=== PATIENT | female | born 1965 | race Caucasian/White ===

== ENCOUNTER 2017-02-22 08:54 | Outpatient (CLI) | payer OTHER ==
[2017-02-22 10:12] LABS: Blood Urea Nitrogen 15 mg/dL (7-17)
[2017-02-22] MEDS ORDERED: NACL ONE (10:21)
--- NOTE | 2017-02-22 14:31 | Cat Scan Report ---
FINAL REPORT EXAM: CT ANGIO NECK HISTORY: CAROTIDS STENOSIS/TIA TECHNIQUE: CTA of the neck was performed after the administration of intravenous contrast. Coronal and sagittal reconstructions were included. Rotating MIPS were included rotating 3D reconstructions were also included. PRIORS: None. FINDINGS: Right: There is 50 percent stenosis of the proximal aspect of the right internal carotid artery due to calcified and noncalcified atherosclerotic plaque. The stenosis extends over a length of approximately 1.5 centimeters. No aneurysm. No evidence of vessel occlusion. No evidence of dissection. The vertebral artery is patent. The common carotid artery is patent. Normal vessel origins are noted. Left: There is 50 percent stenosis of the proximal aspect of the left internal carotid artery at the level of the bifurcation. There is 70 percent stenosis of the left proximal internal carotid artery, approximately 1.5 centimeters from the carotid bifurcation. This focal stenosis extends over a length of 5 millimeters. The common carotid artery is widely patent. The vertebral artery is patent. The left vertebral artery appears to arise directly from the aortic arch. No aneurysm or dissection. No evidence of vessel occlusion. Post thyroidectomy. Multilevel degenerative changes of the cervical spine are seen. Reversal of the cervical lordosis is likely related to patient positioning or muscle spasm. Note that the degrees of stenoses were measured taking the diameter of the area of stenosis to the normal vessel just distal to the area of stenosis. IMPRESSION: 1. 50 percent stenosis of the proximal right internal carotid artery. 2. Area of 70 percent stenosis in the proximal left internal carotid artery, 1.5 centimeters distal to the carotid bifurcation. Second focus of 50 percent stenosis within the proximal left internal carotid artery at the level of the bifurcation.
--- NOTE | 2017-02-23 15:27 | Vascular Lab Report ---
RENAL ARTERY DUPLEX EXAM: REASON FOR EXAM: Renal artery stenosis. NOTE: Visualization is technically adequate. COMMENTS ON THE AORTA: The aorta is patent. Normal flow velocities are observed. A aneurysmal dilatation is noted. Mild atherosclerotic change is identified. The celiac artery is patent with normal flow velocity. The superior mesenteric artery is patent with normal flow velocity. COMMENTS ON THE RIGHT KIDNEY: The kidney measures 9.4 centimeters in greatest dimension. No obvious parenchymal abnormalities are noted. The renal artery is patent. Maximum systolic velocity is 204 cm/sec. This finding is consistent with less than 60% diameter reduction. Renal aortic index is 2.27. This finding is consistent with less than 60% diameter reduction. Overall findings are consistent with less than 60% diameter reduction in the renal artery. COMMENTS ON THE LEFT KIDNEY: The kidney measures 10.9 centimeters in greatest dimension. No obvious parenchymal abnormalities are noted. The renal artery is patent. Maximum systolic velocity is 219 cm/sec. This finding is consistent with less than 60% diameter reduction. Renal aortic index is 2.43. This finding is consistent with less than 60% diameter reduction. Overall findings are consistent with less than 60% diameter reduction in the renal artery. IMPRESSION: RIGHT KIDNEY: Less than 60% diameter reduction in the renal artery. LEFT KIDNEY: Less than 60% diameter reduction in the renal artery. Mild velocity elevations are noted in both renal arteries. Clinical significance is unknown.
== END 2017-02-22 08:55 | disposition home or self-care (01) ==
LOC: US 08:54
PROVIDERS: ATTEND Surgery Vascular Surgery
DX: I65.23 Occlusion and stenosis of bilateral carotid arteries (principal); I70.1 Atherosclerosis of renal artery; E11.9 Type 2 diabetes mellitus without complications; I10 Essential (primary) hypertension; M47.892 Other spondylosis, cervical region; F17.200 Nicotine dependence, unspecified, uncomplicated; Z90.89 Acquired absence of other organs
CPT/HCPCS: 36415; 70498; 82565; 84520; 93975; Q9967

== ENCOUNTER 2017-03-10 06:13 | Inpatient (IN) | payer OTHER ==
[2017-03-08 12:07] LABS: Basophils # (Auto) 0.1 K/mm3 (0.0-0.1); Basophils % (Auto) 0.5 % (0.0-1.8); Eosinophils # (Auto) 0.2 K/mm3 (0.0-0.4); Eosinophils % (Auto) 1.8 % (0.0-4.3); Hematocrit 37.7 % (30.3-42.9); Hemoglobin 11.7 gm/dl (10.1-14.3); Lymphocytes # (Auto) 2.8 K/mm3 (1.2-5.4); Lymphocytes % (Auto) 22.5 % (13.4-35.0); Mean Corpuscular HGB Conc 31 % (30-34); Mean Corpuscular Volume 76 fl (79-97); Monocytes # (Auto) 0.6 K/mm3 (0.0-0.8); Monocytes % (Auto) 4.7 % (0.0-7.3); Platelet Count 263 K/mm3 (140-440); Red Blood Count 4.94 M/mm3 (3.65-5.03); Red Cell Distribution Width 18.7 % (13.2-15.2)
[2017-03-08 12:08] LABS: Mean Corpuscular Hemoglobin 24 pg (28-32)
--- NOTE | 2017-03-08 12:11 | Anesthesia Consultation ---
Anesthesia Consult and Med Hx Date of service: 03/08/17 - Airway Anesthetic Teeth Evaluation: Good ROM Head & Neck: Adequate Mental/Hyoid Distance: Adequate Mallampati Class: Class III Intubation Access Assessment: Possibly Difficult - Pulmonary Exam CTA: Yes - Cardiac Exam Cardiac Exam: RRR - Pre-Operative Health Status ASA Pre-Surgery Classification: ASA3 Proposed Anesthetic Plan: General - Pulmonary Hx Smoking: Yes (1/2 ppd x 30 yrs, current) Hx Asthma: Yes COPD: No Home Oxygen Therapy: No Hx Sleep Apnea: Yes (+CPAP) - Cardiovascular System Hx Hypertension: Yes Hx Cardia Arrhythmia: Yes (OCCASSIONAL PALPITATIONS) - Central Nervous System Hx Seizures: No CVA: No Hx Back Pain: Yes Hx Psychiatric Problems: No - Endocrine Hx Renal Disease: No Hx Non-Insulin Dependent Diabetes: Yes Hx Thyroid Disease: Yes Hx Hypothyroidism: Yes (THYROIDECTOMY, ON MEDS) - Hematic Hx Anemia: Yes - Other Systems Hx Cancer: No Hx Obesity: Yes (MORBID, BMI 42.1) - Additional Comments Anesthesia Medical History Comments: ARTERIAL LINE DISCUSSED. PATIENT IS SLOW TO WAKE UP AND REPORTS THAT A SMALL ETT IS NEEDED BECAUSE SHE HAS A "SMALL THROAT".
[2017-03-08 12:29] LABS: BUN/Creatinine Ratio 23; Blood Urea Nitrogen 14 mg/dL (7-17); Hemolysis Index 0
[~2017-03-10 06:13] MED LIST: ANCEF/STERILE WATER 2 GM/20 ML 2 GM/20 ML SYRINGE IV NR; PEPCID IV NR; VERSED IV NR
[2017-03-10] MEDS ORDERED: NACL BACTERIOSTATIC INFILTRATI ONE (06:33)
[2017-03-10] MEDS: NACL 0.9% 1000 ML 1,000 ML IV SCH (07:09)
[2017-03-10] MEDS ORDERED: XYLOCAINE MPF 2% ONE (07:12)
[2017-03-10] MEDS ORDERED: HEPARIN 10,000 UNITS/10 ML ONE ×2 (07:17→10:07)
[2017-03-10] MEDS ORDERED: MARCAINE 0.5% 30 ML INFILTRATI ONE (07:17)
[2017-03-10] MEDS ORDERED: PAPAVERINE ONE (07:17)
[2017-03-10] MEDS ORDERED: PROTAMINE SULFATE ONE (07:17)
[2017-03-10] MEDS ORDERED: XYLOCAINE 1% 20 mL ONE (07:17)
[2017-03-10] MEDS ORDERED: NACL 0.9% 500 ML 500 ML ONE (07:18)
[2017-03-10] MEDS ORDERED: DIPRIVAN 10 MG/ML IV ONE (07:28)
[2017-03-10] MEDS ORDERED: ZOFRAN ONE (07:28)
[2017-03-10] MEDS ORDERED: ZEMURON IV ONE (07:28)
[2017-03-10] MEDS ORDERED: PROVENTIL IH NR (08:00)
[2017-03-10] MEDS ORDERED: HEPARIN 10,000 UNITS/10 ML IR ONE (08:43)
[2017-03-10] MEDS ORDERED: XYLOCAINE MPF 1% INFILTRATI ONE (08:43)
[2017-03-10] MEDS ORDERED: MARCAINE 0.5% INFILTRATI ONE (08:43)
[2017-03-10] MEDS ORDERED: NACL 0.9% 500 ML IV ONE (08:43)
[2017-03-10] MEDS ORDERED: DILAUDID ONE (08:47)
[2017-03-10] MEDS ORDERED: NACL 0.9% 1000 ML 1,000 ML ONE (09:17)
[2017-03-10] MEDS ORDERED: DECADRON ONE (09:23)
--- NOTE | 2017-03-10 09:41 | Anesthesia Day of Surgery ---
Anesthesia Day of Surgery - Day of Surgery Patient Examined: Yes Patient H&P Reviewed: Yes Patient is NPO: Yes
--- NOTE | 2017-03-10 09:42 | Progress Note ---
Subjective Date of service: 03/10/17 (pt seen and examined 03/10/17 pt has receeding chin and small mouth-known hx difficult intubation-glidescope available will give preop albuterol) Objective - Constitutional Vitals: Vital Signs - 12hr 03/10/17 03/10/17 07:16 07:19 Temperature 98.1 F 98.1 F Pulse Rate 80 80 Respiratory 20 20 Rate Blood Pressure 100/52 100/52 O2 Sat by Pulse 98 98 Oximetry - Labs CBC & Chem 7: 03/08/17 11:35 03/08/17 11:35 Labs: Abnormal lab results 03/10/17 Range/Units 06:51 POC Glucose 158 H (70-105)
[2017-03-10] MEDS ORDERED: NEO SYNEPHRINE/NS Syringe(OR USE) IV ONE (09:43)
[2017-03-10] MEDS ORDERED: ePHEDrine SULFATE ONE (09:48)
[2017-03-10] MEDS ORDERED: NACL 0.9% 100 ML ONE (10:15)
[2017-03-10] MEDS ORDERED: NEO SYNEPHRINE ONE ×2 (10:15→12:56)
--- NOTE | 2017-03-10 11:40 | Operative Report ---
Operative Report Operative Report: Date of procedure:03/10/2017 Pre-operative diagnosis: Symptomatic right carotid stenosis Post-operative diagnosis: Same Procedure name(s): Right carotid endarterectomy, Dacron patch angioplasty, intraoperative duplex scan Surgeon: Eldon Kingsley MD Core Rescuer: Shayy Dobbs PA-C Anesthesia: General endotracheal EBL: Less than 50 mL Specimen(s): Plaque Complications: None Findings: High-grade greater than 80% ICA stenosis intraoperative duplex scan shows mildly elevated distal velocities associated with distal ICA angulation. Low-grade stenosis above the endarterectomy site identified but not felt to be clinically significant accessible for removal Procedure: [Patient in the supine position after adequate levels of general endotracheal anesthesia was obtained the patient's head was rotated to the left and the right anterior neck was prepped and draped using standard sterile technique. A standard anterior sternocleidomastoid incision was made and carried down through the subcutaneous tissue the dissection was then carried anterior to the sternocleidomastoid through the platysma and a dissection plane was developed until the carotid sheath was encountered. The sheath was then entered and the jugular vein were swept laterally. The facial vein was divided. The vagus nerve was identified and preserved. Sequentially the common carotid external carotid and then the internal carotid arteries were delineated from the surrounding tissue and encircled using vessel loops. The hypoglossal nerve was identified. The patient was then heparinized and after appropriate delay the vessels were occluded. A longitudinal arteriotomy was then made in the distal common and extended through the internal carotid artery plaque. Backbleeding was assessed and was felt to be adequate therefore no shunt was used. A high grade carotid stenosis was encountered with a large macro ulceration. A standard endarterectomy including an external eversion endarterectomy was performed. Loose debris was removed. The arteriotomy was then closed using a dacryon patch,double tapered configuration, four needle technique. Prior to completion of the suture line, antegrade and retrograde flushing was performed. The suture line was then completed and air was evacuated by retrograde ICA filling. The ICA was reoccluded and antegrade flow was initially established into the external carotid artery. It was subsequently released to the ICA. Patient tolerated declamping without difficulty. Hemostasis was obtained using Instat and counterpressure. Intraoperative duplex scan was performed which showed excellent antegrade flow, complete resolution of the high-grade velocities and no loose debris. There was a segment distal to the end of the endarterectomized portion of the ICA had some residual stenosis. It was deemed to be less than 50% by direct visualization. Distal to this area there were some elevated velocities as the internal carotid artery does deeper into the neck. No significant stenosis was identified at this level. I felt that the residual stenosis was not a significant risk of stroke or TIA and that chasing that would be challenging due to the distance distally and the configuration of her neck therefore I elected to leave that in place. The incision was then blocked using 20 mL of Marcaine the incision was then closed using 3-0 Vicryl subcutaneous and 4-0 Monocryl subcuticular. The skin was then reapproximated using Dermabond] Patient was then returned to the supine position and extubated and returned to the recovery room in a stable condition having tolerated the procedure well. Sponge and needle counts were correct.
[2017-03-10] MEDS ORDERED: BLOXIVERZ ONE (11:45)
[2017-03-10] MEDS ORDERED: ROBINUL ONE (11:45)
[2017-03-10] MEDS ORDERED: PROAIR IH PRN (11:59)
[2017-03-10] MEDS ORDERED: ZOFRAN IV PRN (12:01)
[2017-03-10] MEDS ORDERED: MORPHINE IV PRN ×3 (12:01→13:38)
[2017-03-10] MEDS ORDERED: MORPHINE ONE (12:59)
[2017-03-10] MEDS ORDERED: NIPRIDE 50 MG in D5W 248 ML IV SCH (13:00)
[2017-03-10] MEDS ORDERED: NACL 0.9% 1000 ML 1,000 ML IV SCH (13:00)
[2017-03-10] MEDS ORDERED: INTROPIN DRIP 800 MG/D5W 250 ML 800 MG/250 ML BAG IV SCH (13:00)
[2017-03-10] MEDS ORDERED: ANCEF/NS 1 GM/50 ML 1 GM/50 ML BAG IV SCH (13:00)
[2017-03-10] MEDS: PROVENTIL IH PRN (13:21)
--- NOTE | 2017-03-10 13:30 | Progress Note ---
Subjective Date of service: 03/10/17 (called to [facility] at 12:55 to evaluate pt for CP- dopaimine ordered after neosy 50ug x 2 given for bp/ekg ordered /nitropaste ordered and placed/ekg ordred and dr villavicencio to beside at 13:18-he will f/u with enzymes ) Objective - Constitutional Vitals: Vital Signs - 12hr 03/10/17 03/10/17 03/10/17 07:16 07:19 11:50 Temperature 98.1 F 98.1 F 96.8 F L Pulse Rate 80 80 78 Respiratory 20 20 17 Rate Blood Pressure 100/52 100/52 100/41 O2 Sat by Pulse 98 98 96 Oximetry 03/10/17 03/10/17 03/10/17 11:55 12:00 12:05 Temperature Pulse Rate 81 73 73 Respiratory 19 16 17 Rate Blood Pressure 89/46 96/42 95/41 O2 Sat by Pulse 93 95 97 Oximetry 03/10/17 03/10/17 12:15 12:30 Temperature Pulse Rate 74 72 Respiratory 16 18 Rate Blood Pressure 90/42 93/41 O2 Sat by Pulse 97 95 Oximetry - Labs CBC & Chem 7: 03/08/17 11:35 03/08/17 11:35 Labs: Abnormal lab results 03/10/17 03/10/17 Range/Units 06:51 12:12 POC Glucose 158 H 207 H (70-105)
--- NOTE | 2017-03-10 13:34 | Post Anesthesia Evaluation ---
- Post Anesthesia Evaluation Patient Participated: Yes Airway Patent: Yes Stable Respiratory Function: Yes Nausea/Vomiting: No Temp > 96.8F: Yes Pain Manageable: Yes Adequeate Hydration: Yes Block Receding Appropriately: Not Applicable Patient on Ventilator: No
[2017-03-10] MEDS ORDERED: NITRO-BID 2% TP ONE (14:00)
--- NOTE | 2017-03-10 14:28 | Consultation ---
History of Present Illness Consult date: 03/10/17 Requesting physician: CLEMENTINE AZEVEDO Consult reason: chest pain, post op evaluation History of present illness: Pt is a 51 YO female with a past medical history significant for HTN, DM, obesity, tobacco use, thyroidectomy, bilateral carotid stenosis, asthma. She recently established care in our office with Dr. Momin. She presented to [facility] today for scheduled right CEA for symptomatic right carotid stenosis and successfully underwent right carotid endarterectomy per Dr. Kingsley. Post- operatively, pt developed midsternal nonradiating chest pain and thus cardiology has been consulted. Post-OP ECG shows NAF. Toya pending. Pt also developed hypotension post-operatively and was initiated on dopamine gtt. On evaluation, pt is resting comfortably in bed. She denies any palpitations, n/v, diaphoresis, dizziness or syncope. She reports that her chest pain has nearly resolved. She remains on dopamine gtt. Past History Past Medical History: diabetes, hypertension, other (bilateral carotid stenosis ; asthma; obesity) Past Surgical History: thyroidectomy, hysterectomy, hernia repair Social history: smoking. denies: alcohol abuse, prescription drug abuse Medications and Allergies Allergies Allergy/AdvReac Type Severity Reaction Status Date / Time apple Allergy Itching Unverified 02/22/17 08:57 Fish Containing Products Allergy Swelling Unverified 02/22/17 08:57 Iodinated Contrast- Oral and Allergy Shortness Verified 11/20/12 21:47 IV Dye of Breath [Iodinated Contrast Media - IV Dye] CT DYE Allergy Shortness Uncoded 02/22/17 08:56 of Breath SURGICAL TAPE Allergy Rash Uncoded 02/22/17 08:56 Home Medications Medication Instructions Recorded Confirmed Last Taken Type Metoprolol [Lopressor] 50 mg PO DAILY 11/20/12 03/10/17 03/10/17 04:30 History Albuterol Sulfate [Ventolin Hfa] 2 puff IH PRN PRN 02/24/17 03/10/17 03/09/17 History Aspirin [Durlaza] 162.5 mg PO DAILY 02/24/17 03/10/17 Unknown History Hydralazine HCl [Hydralazine HCl] 50 mg PO DAILY 02/24/17 03/10/17 03/10/17 04: 30 History Levothyroxine Sodium [Synthroid] 350 mg PO DAILY 1203/10/17 03/09/17 History Lisinopril [Zestril TAB] 40 mg PO DAILY 02/24/17 03/10/17 03/10/17 04:30 History Metformin HCl [Metformin HCl] 500 mg PO TID 02/24/17 03/10/17 03/09/17 History Omeprazole [Omeprazole] 40 mg PO DAILY 02/24/17 03/10/17 03/09/17 History Active Meds: Active Medications Acetaminophen/Hydrocodone Bitart ([place] 5/325) 1 each PO Q6H PRN PRN Reason: Pain, Moderate (4-6) Albuterol (Proventil) 2.5 mg IH PREOP NR Stop: 03/10/17 21:00 Last Admin: 03/10/17 08:12 Dose: 2.5 mg Albuterol (Proventil) 2.5 mg IH Q4HRT PRN PRN Reason: Wheezing Last Admin: 03/10/17 13:21 Dose: 2.5 mg Clopidogrel Bisulfate (Plavix) 75 mg PO QDAY EMMANUEL Clopidogrel Bisulfate (Plavix) 150 mg PO NOW EMMANU[facility] Docusate Sodium (Colace) 100 mg PO BID [facility] Famotidine (Pepcid) 20 mg IV PREOP NR Stop: 03/10/17 23:00 Last Admin: 03/10/17 07:06 Dose: 20 mg Hydralazine HCl (Apresoline) 50 mg PO DAILY [facility]MM[facility] Cefazolin Sodium (Ancef/Sterile Water 2 Gm/20 Ml) 2 gm in 20 mls @ 80 mls/hr IV PREOP NR PRN Reason: Protocol Stop: 03/10/17 23:59 Sodium Chloride (Nacl 0.9% 1000 Ml) 1,000 mls @ 42 mls/hr IV DIRECT EMMANUEL Last Admin: 03/10/17 07:09 Dose: 42 mls/hr Dopamine HCl/Dextrose (Intropin Drip 800 Mg/D5w 250 Ml) 800 mg in 250 mls @ 3.912 mls/hr IV TITR EMMANUEL; 2 MCG/KG/MIN PRN Reason: Protocol Last Admin: 03/10/17 13:00 Dose: 2 mcg/kg/min, 3.912 mls/hr Sodium Nitroprusside 50 mg/ (Dextrose) 250 mls @ 7.82 mls/hr IV TITR EMMANUEL; 0.25 MCG/KG/MIN PRN Reason: Protocol Sodium Chloride (Nacl 0.9% 1000 Ml) 1,000 mls @ 100 mls/hr IV DIRECT EMMANUEL Last Admin: 03/10/17 13:25 Dose: 100 mls/hr Cefazolin Sodium 1 gm/ Sodium (Chloride) 20 mls @ 20 mls/10 min IV Q8H EMMANUEL Stop: 03/11/17 00:09 Levothyroxine Sodium (Synthroid) 350,000 mcg PO DAILY [facility] Lisinopril (Zestril) 40 mg PO DAILY [facility] Metformin HCl (Glucophage) 500 mg PO TIDDIAB [facility] Metoprolol Tartrate (Lopressor) 50 mg PO DAILY [facility] Midazolam HCl (Versed) 2 mg IV PREOP NR Stop: 03/10/17 23:59 Last Admin: 03/10/17 07:07 Dose: 2 mg Morphine Sulfate (Morphine) 4 mg IV Q4H PRN PRN Reason: Pain , Severe (7-10) Last Admin: 03/10/17 12:58 Dose: 4 mg Morphine Sulfate (Morphine) 2 mg IV Q4H PRN PRN Reason: Pain, Moderate (4-6) Ondansetron HCl (Zofran) 4 mg IV Q8H PRN PRN Reason: Nausea And Vomiting Pantoprazole Sodium (Protonix) 40 mg PO DAILY [facility] Review of Systems Constitutional: no weight loss, no weight gain, no fever, no chills, no sweats Ears, nose, mouth and throat: no ear pain, no nose pain, no sinus pressure, no sinus pain Cardiovascular: chest pain, no orthopnea, no palpitations, no rapid/irregular heart beat, no edema, no syncope, no lightheadedness, no shortness of breath, no dyspnea on exertion Respiratory: no cough, no shortness of breath, no dyspnea on exertion, no congestion, no wheezing, no pain on inspiration Gastrointestinal: no abdominal pain, no nausea, no vomiting, no diarrhea, no constipation, no change in bowel habits Genitourinary Female: no pelvic pain, no flank pain, no dysuria, no urinary frequency, no urgency Musculoskeletal: neck pain (Right CEA site incisional pain), no neck stiffness, no shooting arm pain, no arm numbness/tingling, no low back pain, no shooting leg pain, no leg numbness/tingling, no redness of joints Integumentary: no rash, no pruritis, no redness, no sores Neurological: no head injury, no paralysis, no weakness, no parathesias, no numbness, no tingling, no seizures, no syncope Psychiatric: no anxiety Endocrine: no cold intolerance, no heat intolerance Hematologic/Lymphatic: no easy bruising, no easy bleeding Allergic/Immunologic: no urticaria Physical Examination Vital Signs Temp Pulse Resp BP 98.2 F 88 18 140/80 03/08/17 11:25 03/08/17 11:25 03/08/17 11:25 03/08/17 11:25 General appearance: no acute distress HEENT: Positive: PERRL, Normocephaly, Mucus Membranes Moist Neck: Positive: neck supple, trachea midline Cardiac: Positive: Reg Rate and Rhythm, S1/S2, Systolic Murmur Lungs: Positive: clear to auscultation Neuro: Positive: Grossly Intact Abdomen: Positive: Soft. Negative: Tender Skin: Negative: Rash, Suspicious Lesions Incision: Incision Site (right CEA site) Musculoskeletal: No Fluid Collection, No Pain, Normal Range of Motion Extremities: Absent: edema Results 03/08/17 11:35 03/08/17 11:35 - Imaging and Cardiology Echo: pending EKG: report reviewed, image reviewed EKG interpretations - Telemetry EKG Rhythm: Sinus Rhythm - EKG Sinus rhythms and dysrhythmias: sinus rhythm Repolarization changes or abnormalities: nonspecific abnormality, ST segment, and/or T wave Assessment and Plan Assessment: Chest pain, atypical Bilateral carotid stenosis s/p right CEA 03/10/17 Post-operative hypotension - requiring dopamine gtt H/o HTN DM Obesity Asthma Tobacco use Plan: Wean dopamine. Once dopamine gtt is weaned, resume home cardiac regimen as tolerated. Obtain echo. Obtain Toya. Repeat EKG in AM. Pt to tx to CCU. Assessment and plan reviewed with pt at bedside. The patient has been seen in conjunction with Dr. Koroma who agrees with the assessment and plan of care.
[2017-03-10] MEDS: PLAVIX PO SCH (15:57)
[2017-03-10] MEDS: ceFAZolin 1 GM in NACL 0.9% 20 ML IV SCH ×2 (15:58→23:57)
[2017-03-10 16:13] LABS: Creatine Kinase MB 1.7 ng/mL (0.0-4.0)
[2017-03-10] MEDS: GLUCOPHAGE PO SCH (18:46)
[2017-03-11] MEDS ORDERED: NON-FORMULARY (Omeprazole [Omeprazole] 40 MG) PO SCH (10:00)
[2017-03-11] MEDS ORDERED: LOPRESSOR PO SCH ×2 (10:00)
[2017-03-11] MEDS ORDERED: SYNTHROID PO SCH (10:00)
[2017-03-11] MEDS: COLACE PO SCH ×2 (10:10→10:11)
[2017-03-11] MEDS: GLUCOPHAGE PO SCH ×2 (10:11→16:27)
[2017-03-11] MEDS: APRESOLINE PO SCH (10:12)
[2017-03-11] MEDS: PLAVIX PO SCH (10:12)
[2017-03-11] MEDS: TOPROL XL PO SCH (10:13)
[2017-03-11] MEDS: ZESTRIL PO SCH (10:14)
[2017-03-11] MEDS: NORCO 5/325 PO PRN ×2 (10:15→20:13)
[2017-03-11] MEDS: SYNTHROID PO SCH ×2 (10:22→10:23)
[2017-03-11] MEDS: PROTONIX PO SCH (10:25)
--- NOTE | 2017-03-11 10:44 | Progress Note ---
Assessment and Plan Assessment: Post-operative chest pain, atypical - currently resolved; Toya negative for AMI; ECG with NAF Bilateral carotid stenosis s/p right CEA 03/10/17 Post-operative hypotension - requiring dopamine gtt H/o HTN DM Obesity Asthma Tobacco use Plan: Wean dopamine. Once dopamine gtt is weaned, resume home cardiac regimen as tolerated. Await echo. Assessment and plan reviewed with pt at bedside. The patient has been seen in conjunction with Dr. Koroma who agrees with the assessment and plan of care. Subjective Date of service: 03/11/17 Principal diagnosis: carotid stenosis; atypical cp Interval history: pt resting comfortably up in chair, no current cardiac complaints. states chest pain has resolved. remains on dopamine gtt. Objective Last Vital Signs Temp 98.6 F 03/11/17 08:15 Pulse 75 03/11/17 10:14 Resp 15 03/11/17 10:15 BP 103/50 03/11/17 10:14 Pulse Ox 91 03/11/17 09:00 - Physical Examination HEENT: Positive: PERRL, Normocephaly, Mucus Membranes Moist Neck: Positive: neck supple, trachea midline Cardiac: Positive: Reg Rate and Rhythm, S1/S2, Systolic Murmur Lungs: Positive: clear to auscultation Neuro: Positive: Grossly Intact Abdomen: Positive: Soft. Negative: Tender Skin: Negative: Rash, Suspicious Lesions Incision: Incision Site (right CEA site) Musculoskeletal: No Fluid Collection, No Pain, Normal Range of Motion Extremities: Absent: edema - Labs and Meds Cardiac Enzymes 03/10/17 Range/Units 15:16 CK-MB (CK-2) 1.7 (0.0-4.0) ng/mL - Imaging and Cardiology EKG: report reviewed, image reviewed Echo: pending - Telemetry EKG Rhythm: Sinus Rhythm - EKG Sinus rhythms and dysrhythmias: sinus rhythm Repolarization changes or abnormalities: nonspecific abnormality, ST segment, and/or T wave
[2017-03-11] MEDS: PROVENTIL IH PRN (10:47)
--- NOTE | 2017-03-11 15:27 | Progress Note ---
Assessment and Plan The patient was weaned off dopamine and has only had 2 episodes of chest pain. This is the same Chest pain that she has had prior to her operation. Cardiology has been following and does not recommend intervention at this time. She has no focal deficits and no evidence of hematoma. She will be transferred to telemetry and watch for 24 hours after discontinuing her dopamine. It patient remains stable she will be discharged to home tomorrow. She's been given discharge instructions. The patient has expressed understanding and agrees with this plan. Subjective Date of service: 03/11/17 Principal diagnosis: carotid stenosis; atypical cp Interval history: The patient states she has had 2 episodes of chest pain within the last 24 hours. This is no different than the chest pain she has had prior to her operation. Cardiology has evaluated her and does not feel that she requires any intervention at this time. She was able to be weaned off dopamine this morning. She is tolerating a diet and ambulating without any difficulty. She has no other complaints at this time. Objective - Constitutional Vitals: Vital Signs - 12hr 03/11/17 03/11/17 03/11/17 04:00 05:00 06:00 Temperature 98.0 F 97.2 F L 98.8 F Pulse Rate 76 84 77 Respiratory 14 14 12 Rate Blood Pressure Blood Pressure 138/52 102/48 105/51 [Right] O2 Sat by Pulse 92 93 93 Oximetry 03/11/17 03/11/17 03/11/17 07:00 08:15 09:00 Temperature 98.6 F 98.6 F Pulse Rate 82 82 74 Respiratory 15 13 16 Rate Blood Pressure Blood Pressure 145/63 94/38 93/46 [Right] O2 Sat by Pulse 92 0 L 91 Oximetry 03/11/17 03/11/17 03/11/17 10:12 10:13 10:14 Temperature Pulse Rate 75 75 75 Respiratory Rate Blood Pressure 103/50 103/50 103/50 Blood Pressure [Right] O2 Sat by Pulse Oximetry 03/11/17 03/11/17 03/11/17 10:15 11:00 15:18 Temperature 98 F Pulse Rate 89 82 Respiratory 15 96 H 18 Rate Blood Pressure Blood Pressure 101/46 97/44 [Right] O2 Sat by Pulse Oximetry General appearance: Present: no acute distress - Neck Neck: other (right neck incision is clean dry and intact without evidence of hematoma) - Respiratory Respiratory effort: normal - Cardiovascular Rhythm: regular Extremities: no ischemia, normal temperature - Gastrointestinal General gastrointestinal: Present: soft, non-distended - Genitourinary Female genitourinary: deferred - Integumentary Integumentary: clear - Neurologic Neurologic: no focal deficits - Psychiatric Psychiatric: appropriate mood/affect, intact judgment & insight - Labs CBC & Chem 7: 03/08/17 11:35 03/08/17 11:35 Labs: Abnormal lab results 03/10/17 03/10/17 03/11/17 Range/Units 17:23 23:19 04:16 POC Glucose 244 H 215 H 168 H (70-105) 03/11/17 Range/Units 12:09 POC Glucose 158 H (70-105)
--- NOTE | 2017-03-11 17:56 | Consultation ---
History of Present Illness Consult date: 03/11/17 Reason for consult: obstructive sleep apnea History of present illness: This 51 year old female Morbidly Obese admitted for vascular procedure. Consulted for pulmonary management and sleep Apnea management.Patient alert, awake. No acute respiratory distress. No complaint of shortness of breath or cough at this time.. Some non specific chest pain at times. If patient having recurrent chest pains, recommend to consult cardiology. Patient has history hypertension ,diabetes, Hypothyroidism and sleep apnea. Patient has history of smoking 1/2 a pack a day x 30 years. Denies alcohol or drug abuse. 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 Patient does not know the CPAP pressure. Past History Past Medical History: diabetes, hypertension, other (bilateral carotid stenosis ; asthma; obesity) Past Surgical History: thyroidectomy, hysterectomy, hernia repair Social history: smoking. denies: alcohol abuse, prescription drug abuse Medications and Allergies Allergies Allergy/AdvReac Type Severity Reaction Status Date / Time apple Allergy Itching Unverified 02/22/17 08:57 Fish Containing Products Allergy Swelling Unverified 02/22/17 08:57 Iodinated Contrast- Oral and Allergy Shortness Verified 11/20/12 21:47 IV Dye of Breath [Iodinated Contrast Media - IV Dye] CT DYE Allergy Shortness Uncoded 02/22/17 08:56 of Breath SURGICAL TAPE Allergy Rash Uncoded 02/22/17 08:56 Home Medications Medication Instructions Recorded Confirmed Last Taken Type Metoprolol [Lopressor] 50 mg PO DAILY 11/20/12 03/10/17 03/10/17 04:30 History Albuterol Sulfate [Ventolin Hfa] 2 puff IH PRN PRN 02/24/17 03/10/17 03/09/17 History Aspirin [Durlaza] 162.5 mg PO DAILY 02/24/17 03/10/17 Unknown History Hydralazine HCl [Hydralazine HCl] 50 mg PO DAILY 02/24/17 03/10/17 03/10/17 04: 30 History Levothyroxine Sodium [Synthroid] 350 mg PO DAILY 02/24/17 03/10/17 03/09/17 History Lisinopril [Zestril TAB] 40 mg PO DAILY 02/24/17 03/10/17 03/10/17 04:30 History Metformin HCl [Metformin HCl] 500 mg PO TID 02/24/17 03/10/17 03/09/17 History Omeprazole [Omeprazole] 40 mg PO DAILY 02/24/17 03/10/17 03/09/17 History Active Meds: Active Medications Acetaminophen/Hydrocodone Bitart (Vista 5/325) 1 each PO Q6H PRN PRN Reason: Pain, Moderate (4-6) Last Admin: 03/11/17 10:15 Dose: 1 each Albuterol (Proventil) 2.5 mg IH Q4HRT PRN PRN Reason: Wheezing Last Admin: 03/11/17 10:47 Dose: 2.5 mg Clopidogrel Bisulfate (Plavix) 75 mg PO QDAY [facility] Last Admin: 03/11/17 10:12 Dose: 75 mg Clopidogrel Bisulfate (Plavix) 150 mg PO NOW [facility] Last Admin: 03/10/17 15:57 Dose: 150 mg Docusate Sodium (Colace) 100 mg PO BID [facility] Last Admin: 03/11/17 10:11 Dose: 100 mg Hydralazine HCl (Apresoline) 50 mg PO DAILY [facility] Last Admin: 03/11/17 10:12 Dose: Not Given Sodium Chloride (Nacl 0.9% 1000 Ml) 1,000 mls @ 42 mls/hr IV DIRECT EMMANUEL Last Admin: 03/10/17 07:09 Dose: 42 mls/hr Dopamine HCl/Dextrose (Intropin Drip 800 Mg/D5w 250 Ml) 800 mg in 250 mls @ 3.912 mls/hr IV TITR EMMANUEL; 2 MCG/KG/MIN PRN Reason: Protocol Last Admin: 03/10/17 13:00 Dose: 2 mcg/kg/min, 3.912 mls/hr Sodium Nitroprusside 50 mg/ (Dextrose) 250 mls @ 7.82 mls/hr IV TITR EMMANUEL; 0.25 MCG/KG/MIN PRN Reason: Protocol Sodium Chloride (Nacl 0.9% 1000 Ml) 1,000 mls @ 100 mls/hr IV DIRECT EMMANUEL Last Admin: 03/10/17 13:25 Dose: 100 mls/hr Levothyroxine Sodium (Synthroid) 200 mcg PO DAILY@0600 [facility] Last Admin: 03/11/17 10:23 Dose: 200 mcg Levothyroxine Sodium (Synthroid) 150 mcg PO DAILY@0600 [facility] Lisinopril (Zestril) 40 mg PO DAILY [facility] Last Admin: 03/11/17 10:14 Dose: Not Given Metformin HCl (Glucophage) 500 mg PO TIDDIAB [facility] Last Admin: 03/11/17 16:27 Dose: 500 mg Metoprolol Succinate (Toprol Xl) 25 mg PO QDAY [facility] Last Admin: 03/11/17 10:13 Dose: Not Given Morphine Sulfate (Morphine) 4 mg IV Q4H PRN PRN Reason: Pain , Severe (7-10) Last Admin: 03/10/17 12:58 Dose: 4 mg Morphine Sulfate (Morphine) 2 mg IV Q4H PRN PRN Reason: Pain, Moderate (4-6) Ondansetron HCl (Zofran) 4 mg IV Q8H PRN PRN Reason: Nausea And Vomiting Pantoprazole Sodium (Protonix) 40 mg PO DAILY [facility] Last Admin: 03/11/17 10:25 Dose: 40 mg Physical Examination Vital signs: Vital Signs Temp Pulse Resp BP 98.2 F 88 18 140/80 03/08/17 11:25 03/08/17 11:25 03/08/17 11:25 03/08/17 11:25 Results - Laboratory Findings CBC and BMP: 03/08/17 11:35 03/08/17 11:35 Abnormal lab findings: Abnormal Labs 03/08/17 03/08/17 03/10/17 11:35 11:35 06:51 WBC 12.7 H MCV 76 L MCH 24 L RDW 18.7 H Seg Neutrophils % 70.5 H Seg Neutrophils # 8.9 H Creatinine 0.6 L Glucose 252 H POC Glucose 158 H 03/10/17 03/10/17 03/10/17 12:12 17:23 23:19 WBC MCV MCH RDW Seg Neutrophils % Seg Neutrophils # Creatinine Glucose POC Glucose 207 H 244 H 215 H 03/11/17 03/11/17 03/11/17 04:16 12:09 16:28 WBC MCV MCH RDW Seg Neutrophils % Seg Neutrophils # Creatinine Glucose POC Glucose 168 H 158 H 170 H Assessment and Plan This 51 year old female Morbidly Obese admitted for vascular procedure. Consulted for pulmonary management and sleep Apnea management.Patient alert, awake. No acute respiratory distress. No complaint of shortness of breath or cough at this time.. Some non specific chest pain at times. If patient having recurrent chest pains, recommend to consult cardiology. Patient has history hypertension ,diabetes, Hypothyroidism and sleep apnea. Patient has history of smoking 1/2 a pack a day x 30 years. Denies alcohol or drug abuse. 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 Patient does not know the CPAP pressure. - Patient Problems (1) Morbid obesity with BMI of 40.0-44.9, adult Current Visit: Yes Status: Acute Plan to address problem: Recommend to loose weight. Exercise and diet. (2) Obstructive sleep apnea Current Visit: Yes Status: Acute Plan to address problem: CPAP 10 cm H20 Pressure. (3) Hypertension Current Visit: Yes Status: Acute Plan to address problem: Management as per primary care. (4) Diabetes Current Visit: Yes Status: Acute Plan to address problem: Management as per primary care. (5) Hypothyroidism Current Visit: Yes Status: Acute Plan to address problem: Patient is on Levothyroxine. Management as per primary care. (6) Tobacco use Current Visit: Yes Status: Acute Plan to address problem: Counselled to stop smoking.
[2017-03-11] MEDS: NACL 0.9% 1000 ML 1,000 ML IV SCH (20:13)
[2017-03-12] MEDS: SYNTHROID PO SCH ×3 (06:21→06:56)
[2017-03-12] MEDS: COLACE PO SCH ×3 (06:56→09:35)
[2017-03-12] MEDS: PLAVIX PO SCH ×2 (06:58→09:35)
[2017-03-12] MEDS: GLUCOPHAGE PO SCH ×2 (06:58→09:34)
[2017-03-12] MEDS: NACL 0.9% 1000 ML 1,000 ML IV SCH (07:16)
[2017-03-12 09:21] VITALS: BP 133/63
--- NOTE | 2017-03-12 09:27 | Discharge Summary ---
Providers - Providers Date of Admission: 03/10/17 06:13 Date of discharge: 03/12/17 Attending physician: ELDON FORRESTER 03/10/17 12:01 Consult to Physician [CONS] Routine Consulting Provider: ARINA DEE Reason For Exam: ICU admission Place consult to:: dr wang Notified:: y Was contact made?: Yes If yes, spoke with:: Text sent 03/10/17 13:08 Consult to Physician [CONS] Routine Consulting Provider: GINI SIFUENTES Reason For Exam: chest pain Place consult to:: Dr. Sifuentes Notified:: Debbi MACK Comment:: Dr. Galo Koroma is aware of consultation Primary care physician: SHO MARTIN Hospitalization Reason for admission: carotid stenosis Condition: Good Procedures: Date of procedure:03/10/2017 Pre-operative diagnosis: Symptomatic right carotid stenosis Post-operative diagnosis: Same Procedure name(s): Right carotid endarterectomy, Dacron patch angioplasty, intraoperative duplex scan Surgeon: Eldon Forrester MD Director Script: Shayy Dobbs PA-C Anesthesia: General endotracheal EBL: Less than 50 mL Specimen(s): Plaque Complications: None Findings: High-grade greater than 80% ICA stenosis intraoperative duplex scan shows mildly elevated distal velocities associated with distal ICA angulation. Low-grade stenosis above the endarterectomy site identified but not felt to be clinically significant accessible for removal Hospital course: The patient was admitted for the above procedure, which was uneventful. Postoperatively she required dopamine gtt for hypotension. After she experienced mild chest pain, cardiology was consulted. Ultimately, cardiology recommended weaning the gtt and resumed her home cardiac regimen. The gtt was weaned yesterday, and she is ready was d/c today. Disposition: DC-30 STILL A PATIENT Core Measure Documentation - Palliative Care Palliative Care/ Comfort Measures: Not Applicable - Core Measures Any of the following diagnoses?: none Exam - Constitutional Vitals: Temp Pulse Resp BP Pulse Ox 99.4 F 78 22 133/63 94 03/12/17 08:23 03/12/17 08:23 03/12/17 08:23 03/12/17 08:23 03/12/17 08:23 General appearance: Present: no acute distress, well-nourished - EENT Eyes: Present: PERRL ENT: hearing intact, clear oral mucosa - Neck Neck: Present: supple, normal ROM, other (right neck tender to palpation, but incision is healing well - no swelling or discoloration) - Respiratory Respiratory effort: normal - Integumentary Integumentary: Present: clear, warm, dry - Musculoskeletal Musculoskeletal: gait normal, strength equal bilaterally - Psychiatric Psychiatric: appropriate mood/affect, intact judgment & insight - Neurologic Neurologic: CNII-XII intact, moves all extremities Plan Activity: advance as tolerated Weight Bearing Status: Full Weight Bearing Diet: low cholesterol Wound: open to air, keep clean and dry Follow up with: SHO MARTIN MD [Primary Care Provider] - 7 Days ELDON FORRESTER MD [Staff Physician] - 10 Days Prescriptions: HYDROcodone/APAP 5-325 [Bagley 5-325 mg TAB] 1 each PO Q6H PRN #20 tablet PRN Reason: Pain, Moderate (4-6)
[2017-03-12] MEDS: PROTONIX PO SCH (09:34)
[2017-03-12] MEDS: TOPROL XL PO SCH (09:35)
[2017-03-12] MEDS: APRESOLINE PO SCH (09:35)
[2017-03-12] MEDS: ZESTRIL PO SCH (09:35)
[2017-03-12] MEDS: NORCO 5/325 PO PRN (09:41)
--- NOTE | 2017-03-13 14:11 | Vascular Lab Report ---
INTRAOPERATIVE CAROTID ARTERY DUPLEX Reason for exam: Completion of carotid endarterectomy Comments on the right: The common and internal carotid arteries are patent without evidence of intraluminal irregularities. Flow velocities appear to be mildly elevated but consistent with the tortuosity of the vessel. No obvious technical defects at the endarterectomy site appreciated. Impression: No obvious technical imperfections at the endarterectomy site. Mildly elevated systolic velocities in the internal carotid artery consistent with a tortuous artery.
== END 2017-03-12 11:13 | disposition home or self-care (01) | DRG 38 ==
LOC: 3A 06:13 → 4A 03-11 15:58
PROVIDERS: ADMIT Surgery Vascular Surgery; ATTEND Surgery Vascular Surgery
PROC: 4A033R1 Measurement of Arterial Saturation, Peripheral, Percutaneous Approach (ICD-10-PCS; principal; 2017-03-10)
PROC: 03CK0ZZ Extirpation of Matter from Right Internal Carotid Artery, Open Approach (ICD-10-PCS; 2017-03-10)
PROC: 03UK0JZ Supplement Right Internal Carotid Artery with Synthetic Substitute, Open Approach (ICD-10-PCS; 2017-03-10)
DX: I65.23 Occlusion and stenosis of bilateral carotid arteries (principal); Z68.42 Body mass index [BMI] 45.0-49.9, adult; I10 Essential (primary) hypertension; E11.9 Type 2 diabetes mellitus without complications; I15.0 Renovascular hypertension; E78.00 Pure hypercholesterolemia, unspecified; F17.200 Nicotine dependence, unspecified, uncomplicated; G47.30 Sleep apnea, unspecified; D64.9 Anemia, unspecified; E66.01 Morbid (severe) obesity due to excess calories; J45.909 Unspecified asthma, uncomplicated; Z90.49 Acquired absence of other specified parts of digestive tract; Z90.710 Acquired absence of both cervix and uterus; Z98.51 Tubal ligation status; Z80.9 Family history of malignant neoplasm, unspecified; Z82.49 Family history of ischemic heart disease and other diseases of the circulatory system; Z83.3 Family history of diabetes mellitus; Z82.3 Family history of stroke; Z91.041 Radiographic dye allergy status; Z91.013 Allergy to seafood; Z91.048 Other nonmedicinal substance allergy status; Z79.899 Other long term (current) drug therapy; Z79.84 Long term (current) use of oral hypoglycemic drugs; Z79.82 Long term (current) use of aspirin; G89.18 Other acute postprocedural pain; R07.89 Other chest pain; I95.81 Postprocedural hypotension
CPT/HCPCS: 36415; 36600; 36620; 80048; 82550; 82553; 82803; 82962; 84484; 85025; 86850; 86900; 86901; 88304; 88311; 93005; 93010; 93306; 99406; C1768; J0690; J1100; J1170; J1265; J1644; J1815; J2250; J2270; J2370; J2405; J2440; J2704; J2710; J2720; J7030; J7040

== ENCOUNTER 2017-07-10 11:56 | Emergency (ER) | payer OTHER ==
[2017-07-10 12:54] LABS: Hematocrit 43.4 % (30.3-42.9); Hemoglobin 13.8 gm/dl (10.1-14.3); Mean Corpuscular HGB Conc 32 % (30-34); Mean Corpuscular Hemoglobin 25 pg (28-32); Mean Corpuscular Volume 80 fl (79-97); Platelet Count 266 K/mm3 (140-440); Red Blood Count 5.41 M/mm3 (3.65-5.03); Red Cell Distribution Width 19.7 % (13.2-15.2)
[2017-07-10 12:55] LABS: Basophils # (Auto) 0.1 K/mm3 (0.0-0.1); Basophils % (Auto) 0.4 % (0.0-1.8); Eosinophils # (Auto) 0.1 K/mm3 (0.0-0.4); Eosinophils % (Auto) 0.9 % (0.0-4.3); Lymphocytes # (Auto) 1.9 K/mm3 (1.2-5.4); Lymphocytes % (Auto) 15.9 % (13.4-35.0); Monocytes # (Auto) 0.6 K/mm3 (0.0-0.8); Monocytes % (Auto) 4.9 % (0.0-7.3)
[2017-07-10 12:59] LABS: Bilirubin,Urine NEG (Negative); Blood,Urine NEG (Negative); Color,Urine Yellow (Yellow); Mucus,Urine FEW /HPF; Protein,Urine <15 mg/dL mg/dL (Negative); Urobilinogen,Urine < 2.0 mg/dL (<2.0)
[2017-07-10 13:00] LABS: Alanine Aminotransferase 18 units/L (7-56); Albumin 3.8 g/dL (3.9-5); BUN/Creatinine Ratio 25; Blood Urea Nitrogen 15 mg/dL (7-17); Calcium 8.7 mg/dL (8.4-10.2); Hemolysis Index 60; Lipase 22 units/L (13-60)
[2017-07-10] MEDS ORDERED: TORADOL IV ONE (14:07)
[2017-07-10] MEDS ORDERED: NACL 0.9% 1000 ML 1,000 ML IV ONE (14:07)
[2017-07-10] MEDS ORDERED: ZOFRAN IV ONE (14:07)
--- NOTE | 2017-07-10 14:07 | Emergency Department Report ---
ED Abdominal Pain HPI - General Chief Complaint: Abdominal Pain Stated Complaint: ABD PAIN Time Seen by Provider: 07/10/17 12:55 Source: patient Mode of arrival: Ambulatory Limitations: No Limitations - History of Present Illness MD Complaint: abdominal pain -: Gradual Location: diffuse Radiation: none Migration to: no migration Severity: moderate Severity scale (0 -10): 5 Consistency: intermittent Improves With: nothing Worsens With: nothing Associated Symptoms: nausea, vomiting. denies: diarrhea - Related Data Home Medications Medication Instructions Recorded Confirmed Last Taken Metoprolol [Lopressor TAB] 50 mg PO DAILY 11/20/12 03/10/17 03/10/17 04:30 Albuterol Sulfate [Ventolin Hfa] 2 puff IH PRN PRN 02/24/17 03/10/17 03/09/17 Aspirin [Durlaza] 162.5 mg PO DAILY 02/24/17 03/10/17 Unknown Levothyroxine Sodium [Synthroid] 350 mg PO DAILY 02/24/17 03/10/17 03/09/17 Lisinopril [Zestril TAB] 40 mg PO DAILY 02/24/17 03/10/17 03/10/17 04:30 Metformin HCl 500 mg PO TID 02/24/17 03/10/17 03/09/17 Omeprazole 40 mg PO DAILY 02/24/17 03/10/17 03/09/17 Previous Rx's Medication Instructions Recorded Last Taken Type ALBUTEROL NEB's [Proventil 0.083% 2.5 mg IH Q4HRT PRN nebu 03/12/17 Unknown Rx NEBS] HYDROcodone/APAP 5-325 [Romance 1 each PO Q6H PRN #20 tablet 03/12/17 Unknown Rx 5-325 mg TAB] Levothyroxine [Synthroid] 150 mcg PO DAILY@0600 tablet 03/12/17 Unknown Rx Levothyroxine [Synthroid] 200 mcg PO DAILY@0600 tablet 03/12/17 Unknown Rx Metoprolol Xl [Metoprolol 25 mg PO QDAY tablet 03/12/17 Unknown Rx SUCCINATE ER TAB] Pantoprazole [Protonix TAB] 40 mg PO DAILY tablet 03/12/17 Unknown Rx hydrALAZINE [Apresoline TAB] 50 mg PO DAILY tablet 03/12/17 Unknown Rx Ondansetron [Zofran ODT TAB] 8 mg PO Q8HR #15 tab.rapdis 07/10/17 Unknown Rx Allergies Allergy/AdvReac Type Severity Reaction Status Date / Time apple Allergy Itching Unverified 02/22/17 08:57 Fish Containing Products Allergy Swelling Unverified 02/22/17 08:57 Iodinated Contrast- Oral and Allergy Shortness Verified 11/20/12 21:47 IV Dye of Breath [Iodinated Contrast Media - IV Dye] CT DYE Allergy Shortness Uncoded 02/22/17 08:56 of Breath SURGICAL TAPE Allergy Rash Uncoded 02/22/17 08:56 ED Review of Systems ROS: Stated complaint: ABD PAIN Other details as noted in HPI Comment: All other systems reviewed and negative Constitutional: denies: chills, fever Eyes: denies: vision change ENT: denies: throat pain Respiratory: denies: cough, orthopnea, shortness of breath Cardiovascular: denies: chest pain, palpitations Endocrine: no symptoms reported Gastrointestinal: abdominal pain, nausea, vomiting Genitourinary: denies: urgency, frequency Musculoskeletal: denies: back pain, joint swelling Skin: denies: rash, change in color Neurological: denies: headache, weakness, numbness Psychiatric: denies: anxiety, depression Hematological/Lymphatic: denies: easy bleeding, easy bruising ED Past Medical Hx - Past Medical History Hx Hypertension: Yes Hx Congestive Heart Failure: No Hx Diabetes: Yes Additional medical history: hypothyroidism; cardiomegaly, left carotid blocked - Surgical History Additional Surgical History: hysterectomy; thyroidectomy; hernia repair, breast reduction, right carotid endarectomy - Social History Smoking Status: Never Smoker Substance Use Type: None - Medications Home Medications: Home Medications Medication Instructions Recorded Confirmed Last Taken Type Metoprolol [Lopressor TAB] 50 mg PO DAILY 11/20/12 03/10/17 03/10/17 04:30 History Albuterol Sulfate [Ventolin Hfa] 2 puff IH PRN PRN 02/24/17 03/10/17 03/09/17 History Aspirin [Durlaza] 162.5 mg PO DAILY 02/24/17 03/10/17 Unknown History Levothyroxine Sodium [Synthroid] 350 mg PO DAILY 02/24/17 03/10/17 03/09/17 History Lisinopril [Zestril TAB] 40 mg PO DAILY 02/24/17 03/10/17 03/10/17 04:30 History Metformin HCl 500 mg PO TID 02/24/17 03/10/17 03/09/17 History Omeprazole 40 mg PO DAILY 02/24/17 03/10/17 03/09/17 History ALBUTEROL NEB's [Proventil 0.083% 2.5 mg IH Q4HRT PRN nebu 03/12/17 Unknown Rx NEBS] HYDROcodone/APAP 5-325 [Romance 1 each PO Q6H PRN #20 tablet 03/12/17 Unknown Rx 5-325 mg TAB] Levothyroxine [Synthroid] 150 mcg PO DAILY@0600 tablet 03/12/17 Unknown Rx Levothyroxine [Synthroid] 200 mcg PO DAILY@0600 tablet 03/12/17 Unknown Rx Metoprolol Xl [Metoprolol 25 mg PO QDAY tablet 03/12/17 Unknown Rx SUCCINATE ER TAB] Pantoprazole [Protonix TAB] 40 mg PO DAILY tablet 03/12/17 Unknown Rx hydrALAZINE [Apresoline TAB] 50 mg PO DAILY tablet 03/12/17 Unknown Rx Ondansetron [Zofran ODT TAB] 8 mg PO Q8HR #15 tab.rapdis 07/10/17 Unknown Rx ED Physical Exam - General Limitations: No Limitations General appearance: alert - Head Head exam: Present: atraumatic, normocephalic, normal inspection - Eye Eye exam: Present: normal appearance, PERRL, EOMI Pupils: Present: normal accommodation - ENT ENT exam: Present: normal exam, normal orophraynx, mucous membranes moist - Neck Neck exam: Present: normal inspection, full ROM. Absent: tenderness - Respiratory Respiratory exam: Present: normal lung sounds bilaterally. Absent: respiratory distress, rales, rhonchi - Cardiovascular Cardiovascular Exam: Present: regular rate, normal rhythm, normal heart sounds - GI/Abdominal GI/Abdominal exam: Present: soft, tenderness, normal bowel sounds. Absent: guarding, rebound - Rectal Rectal exam: Present: deferred - Extremities Exam Extremities exam: Present: normal inspection, full ROM, normal capillary refill - Back Exam Back exam: Present: normal inspection, full ROM. Absent: CVA tenderness (L) - Neurological Exam Neurological exam: Present: alert, oriented X3, CN II-XII intact - Psychiatric Psychiatric exam: Present: normal affect, normal mood - Skin Skin exam: Present: warm, dry, intact, normal color. Absent: rash ED Course Vital Signs 07/10/17 07/10/17 07/10/17 12:00 15:00 15:30 Temperature 98.5 F Pulse Rate 91 H Respiratory 18 18 18 Rate Blood Pressure 160/93 O2 Sat by Pulse 98 Oximetry 07/10/17 07/10/17 07/10/17 16:10 16:15 16:30 Temperature Pulse Rate 90 83 Respiratory 13 18 13 Rate Blood Pressure 138/78 135/75 O2 Sat by Pulse 97 94 Oximetry 07/10/17 07/10/17 07/10/17 16:45 17:00 17:15 Temperature Pulse Rate 85 80 78 Respiratory 24 16 15 Rate Blood Pressure 143/79 153/85 142/81 O2 Sat by Pulse 95 91 90 Oximetry 07/10/17 07/10/17 07/10/17 17:30 17:45 18:00 Temperature Pulse Rate 75 79 81 Respiratory 13 14 16 Rate Blood Pressure 143/78 137/80 139/74 O2 Sat by Pulse 91 94 95 Oximetry - Reevaluation(s) Reevaluation #1: 07/10/17 19:14 Patient's abdominal pain resolved in the ED. He wants to go home. Patient did not vomit in the emergency room. ED Medical Decision Making - Lab Data Result diagrams: 07/10/17 14:56 07/10/17 14:56 - Radiology Data Radiology results: report reviewed, image reviewed Critical care attestation.: If time is entered above; I have spent that time in minutes in the direct care of this critically ill patient, excluding procedure time. ED Disposition Clinical Impression: Abdominal pain Qualifiers: Abdominal location: generalized Qualified Code(s): R10.84 - Generalized abdominal pain Nausea and vomiting Qualifiers: Vomiting type: unspecified Vomiting Intractability: non-intractable Qualified Code(s): R11.2 - Nausea with vomiting, unspecified Disposition: DC-01 TO HOME OR SELFCARE Is pt being admited?: No Does the pt Need Aspirin: No Condition: Stable Instructions: Abdominal Pain (ED) Additional Instructions: Please follow up with her primary doctor tomorrow morning. Return to the emergency room if condition losses. Prescriptions: Ondansetron [Zofran ODT TAB] 8 mg PO Q8HR #15 tab.rapdis Referrals: PRIMARY CARE, [Primary Care Provider] - 3-5 Days Time of Disposition: 17:46
[2017-07-10 15:22] LABS: Basophils % (Auto) 0.5 % (0.0-1.8); Eosinophils # (Auto) 0.1 K/mm3 (0.0-0.4); Eosinophils % (Auto) 1.2 % (0.0-4.3); Hematocrit 41.5 % (30.3-42.9); Hemoglobin 13.2 gm/dl (10.1-14.3); Lymphocytes % (Auto) 17.1 % (13.4-35.0); Mean Corpuscular HGB Conc 32 % (30-34); Mean Corpuscular Hemoglobin 25 pg (28-32); Mean Corpuscular Volume 80 fl (79-97); Mean Platelet Volume 8.6 fl (6-12); Monocytes # (Auto) 0.7 K/mm3 (0.0-0.8); Platelet Count 241 K/mm3 (140-440); Red Blood Count 5.21 M/mm3 (3.65-5.03); Red Cell Distribution Width 19.5 % (13.2-15.2)
[2017-07-10 15:23] LABS: Basophils # (Auto) 0.1 K/mm3 (0.0-0.1)
[2017-07-10 15:24] LABS: INR 0.9 (0.87-1.13)
[2017-07-10 15:33] LABS: Alanine Aminotransferase 17 units/L (7-56); Albumin 3.8 g/dL (3.9-5); BUN/Creatinine Ratio 25; Blood Urea Nitrogen 15 mg/dL (7-17); Calcium 8.7 mg/dL (8.4-10.2); Hemolysis Index 2
--- NOTE | 2017-07-10 15:33 | Cat Scan Report ---
FINAL REPORT EXAM: CT ABDOMEN PELVIS WO CON HISTORY: Abdominal Pain TECHNIQUE: Noncontrast CT of the abdomen and pelvis performed. No IV or gastrointestinal contrast was administered. Coronal and sagittal reformatted images were obtained. PRIORS: None. FINDINGS: The visualized aspects of the lung bases are clear. Within the limitations of a non-enhanced study, the visualized liver, spleen, pancreas, adrenal glands and kidneys demonstrate no significant abnormalities. The patient is status post cholecystectomy. There are no renal stones, ureteral stones, hydronephrosis, or evidence of obstructive uropathy. There is no evidence of intestinal obstruction. There are aortoiliac atherosclerotic calcifications. There is no abdominal aortic aneurysm. The appendix is normal. There are no abnormal fluid collections seen. There is no free intraperitoneal air. The bladder is unremarkable. There is no abnormal pelvic mass or fluid collections seen. There is mild sigmoid diverticulosis. There is no evidence of acute diverticulitis. IMPRESSION: Mild sigmoid diverticulosis. No diverticulitis seen. There is no acute abnormality identified.
[2017-07-10 15:42] LABS: Bilirubin,Direct < 0.2 mg/dL (0-0.2)
[2017-07-10] MEDS ORDERED: TORADOL ONE (16:43)
[2017-07-10] MEDS ORDERED: ZOFRAN ONE (16:43)
[2017-07-10 18:37] VITALS: BP 139/74
== END 2017-07-10 18:37 | disposition home or self-care (01) ==
LOC: ED 11:56
DX: R10.84 Generalized abdominal pain (principal); R11.2 Nausea with vomiting, unspecified; I10 Essential (primary) hypertension; E11.9 Type 2 diabetes mellitus without complications; E89.0 Postprocedural hypothyroidism; Z90.710 Acquired absence of both cervix and uterus; Z91.018 Allergy to other foods; Z91.013 Allergy to seafood; Z91.041 Radiographic dye allergy status; Z91.09 Other allergy status, other than to drugs and biological substances
CPT/HCPCS: 36415; 74176; 80048; 80053; 80074; 81001; 83690; 85025; 85610; 96361; 96374; 96375; 99284; J1885; J2405; J7030

== ENCOUNTER 2017-08-04 11:06 | Outpatient (CLI) | payer OTHER ==
--- NOTE | 2017-08-04 16:21 | Cat Scan Report ---
FINAL REPORT EXAM: CT ANGIO ABDOMEN PELVIS HISTORY: Atherosclerosis Of Renal Artery TECHNIQUE: CTA of the abdomen and pelvis with IV contrast. Coronal and sagittal reconstructed imaging provided. PRIORS: CT abdomen pelvis July 10, 2017. FINDINGS: ABDOMEN: Mild aortic atherosclerotic disease. No aneurysm or dissection. Celiac axis is patent without significant disease. Mild disease at the origin of the SMA is otherwise patent. Single right and 2 left renal arteries. Smaller left upper renal artery supplies the upper cortex. Inferior larger left renal artery appears to supply the mid inferior cortex. Moderate disease at the origin of both left renal arteries and at the right renal artery. Inferior mesenteric artery demonstrates [id number] disease at the origin. Otherwise the arteries patent. Cjdl-[id number] disease at the common iliacs. Tgxn-qs-[id number] disease at the internal iliacs. External iliacs demonstrate mild disease. All iliac vessels are patent. No aneurysm. No dissection. Images of the lung bases and heart are unremarkable. Prior cholecystectomy. Fatty liver. No suspicious lesions. Stomach, spleen, pancreas, and adrenals are unremarkable. IVC is unremarkable. No periaortic retroperitoneal mass or adenopathy. Otip-fm-pyndvmnk stool in colon. Sigmoid diverticulosis. Terminal ileum is unremarkable. Appendix is normal. Large and small bowel loops do not demonstrate any wall thickening or inflammatory changes. No obstructive pattern. Diastasis recti demonstrates a broad-based protrusion partially involving the ventral hernia repair. Fat and loops of bowel noted. No strangulation or incarceration. Appearance is similar to prior. Mesentery is unremarkable. PELVIS: Uterus is not clearly identified and may be surgically removed, small, or atrophic. Bladder is unremarkable. There is no pelvic mass or adenopathy. Inguinal regions are unremarkable. Bones: No suspicious osseous lesions on this limited examination of the skeleton. Metastatic disease better evaluated with bone scan. Degenerative changes are in the spine. IMPRESSION: Asku-zu-[id number] atherosclerotic disease in the aorta and major branch vessels in the abdomen. No aneurysm or dissection. Possible moderate disease at the origin of the renal arteries bilaterally. There may be a hemodynamically significant stenosis at the origin of the right and the inferior left renal artery. No hemodynamically significant stenosis at the celiac axis or superior mesenteric arteries. Fatty liver.
== END 2017-08-04 11:07 | disposition home or self-care (01) ==
LOC: CT 11:06
PROVIDERS: ATTEND Surgery Vascular Surgery
DX: E11.9 Type 2 diabetes mellitus without complications (principal); I15.0 Renovascular hypertension; I70.1 Atherosclerosis of renal artery; I10 Essential (primary) hypertension; I65.23 Occlusion and stenosis of bilateral carotid arteries; K76.0 Fatty (change of) liver, not elsewhere classified; E03.9 Hypothyroidism, unspecified; K57.30 Diverticulosis of large intestine without perforation or abscess without bleeding; E66.01 Morbid (severe) obesity due to excess calories; G47.33 Obstructive sleep apnea (adult) (pediatric); Z90.49 Acquired absence of other specified parts of digestive tract; Z90.710 Acquired absence of both cervix and uterus
CPT/HCPCS: 74174; Q9967

== ENCOUNTER 2017-08-15 11:19 | Outpatient (CLI) | payer OTHER ==
--- NOTE | 2017-08-15 17:11 | Cat Scan Report ---
FINAL REPORT EXAM: CT ANGIO NECK HISTORY: OCCLUSION AND STENOSIS OF BILATERAL CAROTID ARTERIES COMPARISON: None. TECHNIQUE: Multiple contiguous axial images were obtained through the neck after administration of IV contrast. Reformatted sagittal and coronal images were available for review. 3D reconstruction of the vessels was also performed. FINDINGS: There is a normal variant branching pattern of the aortic arch with the left vertebral artery directly originating from the arch. The vertebral arteries are patent with a dominant left vertebral artery. The basilar artery and posterior cerebral arteries are patent. There is atherosclerotic plaque and calcification of the left common carotid artery at its bifurcation extending into the proximal left internal carotid artery. The origin of the left internal carotid artery is narrowed at its origin with approximately greater than 65 stenosis, according to NASCET criteria. The distal internal carotid artery is patent and normal in caliber. There is atherosclerotic plaque and intimal thickening of the right common carotid artery. There is no significant stenosis of the right internal carotid artery. The right external iliac artery is patent. The anterior cerebral and middle cerebral arteries are patent and normal in caliber. IMPRESSION: Greater than 65 percent stenosis of the left internal carotid artery. Atherosclerotic plaque and intimal thickening of the right common carotid artery with less than 50 percent stenosis.
== END 2017-08-15 11:20 | disposition home or self-care (01) ==
LOC: CT 11:19
PROVIDERS: ATTEND Surgery Vascular Surgery
DX: I65.23 Occlusion and stenosis of bilateral carotid arteries (principal); E11.9 Type 2 diabetes mellitus without complications; I10 Essential (primary) hypertension; I15.0 Renovascular hypertension; I70.1 Atherosclerosis of renal artery; G47.33 Obstructive sleep apnea (adult) (pediatric); E03.9 Hypothyroidism, unspecified; Z90.710 Acquired absence of both cervix and uterus
CPT/HCPCS: 70498; Q9967

== ENCOUNTER 2017-08-15 17:58 | Emergency (ER) | payer OTHER ==
[2017-08-15 19:16] LABS: Basophils # (Auto) 0.1 K/mm3 (0.0-0.1); Basophils % (Auto) 0.6 % (0.0-1.8); Hematocrit 45.9 % (30.3-42.9); Hemoglobin 14.4 gm/dl (10.1-14.3); Lymphocytes # (Auto) 1.8 K/mm3 (1.2-5.4); Lymphocytes % (Auto) 13.5 % (13.4-35.0); Mean Corpuscular HGB Conc 31 % (30-34); Mean Corpuscular Volume 82 fl (79-97); Monocytes # (Auto) 0.4 K/mm3 (0.0-0.8); Monocytes % (Auto) 2.7 % (0.0-7.3); Platelet Count 283 K/mm3 (140-440); Red Blood Count 5.62 M/mm3 (3.65-5.03); Red Cell Distribution Width 18.4 % (13.2-15.2)
[2017-08-15 19:24] LABS: Mean Corpuscular Hemoglobin 26 pg (28-32)
[2017-08-15 19:27] LABS: BUN/Creatinine Ratio 16; Blood Urea Nitrogen 13 mg/dL (7-17); Hemolysis Index 4
[2017-08-15 20:30] LABS: Bilirubin,Urine NEG (Negative); Blood,Urine NEG (Negative); Color,Urine Straw (Yellow); Mucus,Urine FEW /HPF; Protein,Urine <15 mg/dL mg/dL (Negative); Urobilinogen,Urine < 2.0 mg/dL (<2.0)
[2017-08-15] MEDS ORDERED: CATAPRES ONE (23:15)
[2017-08-15] MEDS ORDERED: CATAPRES PO ONE (23:22)
[2017-08-16] MEDS ORDERED: HumuLIN R IV ONE ×2 (02:25→05:49)
[2017-08-16] MEDS ORDERED: NORMODYNE IV ONE (02:25)
[2017-08-16] MEDS ORDERED: SUBLIMAZE IV ONE (03:46)
[2017-08-16] MEDS ORDERED: ZOFRAN IV ONE (03:46)
[2017-08-16 03:50] LABS: Alanine Aminotransferase 14 units/L (7-56); Albumin 4.2 g/dL (3.9-5); Lipase 19 units/L (13-60)
[2017-08-16 03:57] LABS: Bilirubin,Direct < 0.2 mg/dL (0-0.2)
[2017-08-16] MEDS ORDERED: NACL 0.9% 500 ML 500 ML IV ONE (04:29)
--- NOTE | 2017-08-16 04:33 | Emergency Department Report ---
HPI - General Chief Complaint: Hyperglycemia Time Seen by Provider: 08/16/17 02:15 - HPI HPI: The patient is a 52-year-old female with a history of diabetes, who presents for evaluation of abdominal pain. The patient reports generalized abdominal pain since 10 AM yesterday, nearly 24 hours ago, constant since onset, moderate to severe, sharp in quality. The patient denies fever, chills, night sweats, chest pain, dyspnea, hematemesis, diarrhea, blood in the stool, dark tarry stool , dysuria, hematuria, flank pain, genital discharge, inability to pass flatus. ED Past Medical Hx - Past Medical History Hx Hypertension: Yes Hx Congestive Heart Failure: No Hx Diabetes: Yes Additional medical history: hypothyroidism; cardiomegaly, left carotid blocked - Surgical History Additional Surgical History: hysterectomy; thyroidectomy; hernia repair, breast reduction, right carotid endarectomy - Social History Smoking Status: Current Every Day Smoker Substance Use Type: None - Medications Home Medications: Home Medications Medication Instructions Recorded Confirmed Last Taken Type Metoprolol [Lopressor TAB] 50 mg PO DAILY 11/20/12 03/10/17 03/10/17 04:30 History Albuterol Sulfate [Ventolin Hfa] 2 puff IH PRN PRN 02/24/17 03/10/17 03/09/17 History Aspirin [Durlaza] 162.5 mg PO DAILY 02/24/17 03/10/17 Unknown History Levothyroxine Sodium [Synthroid] 350 mg PO DAILY 02/24/17 03/10/17 03/09/17 History Lisinopril [Zestril TAB] 40 mg PO DAILY 02/24/17 03/10/17 03/10/17 04:30 History Metformin HCl 500 mg PO TID 02/24/17 03/10/17 03/09/17 History Omeprazole 40 mg PO DAILY 02/24/17 03/10/17 03/09/17 History ALBUTEROL NEB's [Proventil 0.083% 2.5 mg IH Q4HRT PRN nebu 03/12/17 Unknown Rx NEBS] HYDROcodone/APAP 5-325 [Ewing 1 each PO Q6H PRN #20 tablet 03/12/17 Unknown Rx 5-325 mg TAB] Levothyroxine [Synthroid] 150 mcg PO DAILY@0600 tablet 03/12/17 Unknown Rx Levothyroxine [Synthroid] 200 mcg PO DAILY@0600 tablet 03/12/17 Unknown Rx Metoprolol Xl [Metoprolol 25 mg PO QDAY tablet 03/12/17 Unknown Rx SUCCINATE ER TAB] Pantoprazole [Protonix TAB] 40 mg PO DAILY tablet 03/12/17 Unknown Rx hydrALAZINE [Apresoline TAB] 50 mg PO DAILY tablet 03/12/17 Unknown Rx Ondansetron [Zofran ODT TAB] 8 mg PO Q8HR #15 tab.rapdis 07/10/17 Unknown Rx Ondansetron [Zofran TAB] 4 mg PO Q8HR PRN #20 tablet 08/16/17 Unknown Rx traMADol [Ultram 50 MG tab] 50 mg PO Q6HR PRN #15 tablet 08/16/17 Unknown Rx ED Review of Systems ROS: Stated complaint: BP HIGH, GLUCOSE HIGH AND BURNING INSIDE Other details as noted in HPI Constitutional: denies: fever ENT: denies: throat or neck pain Respiratory: denies: cough, shortness of breath Cardiovascular: denies: chest pain Endocrine: denies unexplained weight loss or gain Gastrointestinal: reports: abdominal pain, nausea Genitourinary: denies: dysuria Musculoskeletal: denies: leg swelling Skin: denies: rash Neurological: denies: headache Hematological/Lymphatic: denies: easy bleeding or easy bruising Psych: denies sadness or hopelessness Physical Exam - Physical Exam Vital Signs: Vital Signs 08/15/17 08/15/17 08/15/17 18:48 23:05 23:22 Temperature 98.4 F 98.1 F Pulse Rate 111 H 96 H 96 H Respiratory 18 20 Rate Blood Pressure 196/92 211/98 211/98 Blood Pressure [Left] O2 Sat by Pulse 98 95 Oximetry 08/16/17 08/16/17 03:23 03:25 Temperature Pulse Rate 88 88 Respiratory 18 18 Rate Blood Pressure Blood Pressure 144/74 [Left] O2 Sat by Pulse Oximetry Physical Exam: General: well-nourished, well-developed, no acute distress Head: Normocephalic, atraumatic Eyes: normal sclera ENT: Mucous membranes are pink and moist Neck: trachea midline, neck supple, No neck stiffness, no cervical adenopathy Respiratory: Breath sounds equal bilaterally, no wheezing, rales, or rhonchi Cardio: S1 and S2 present, no murmurs, rubs, gallops, capillary refill is brisk Abdomen: Normoactive bowel sounds, soft abdomen, generalized tenderness to palpation present, no rigidity, no guarding or rebound tenderness Chest WALL/Back: No tenderness to palpation of the chest wall, no CVA tenderness with percussion Musc: No pitting edema Skin: No rash Neuro: no facial drooping, normal speech Psych: Normal affect ED Course Vital Signs 08/15/17 08/15/17 08/15/17 18:48 23:05 23:22 Temperature 98.4 F 98.1 F Pulse Rate 111 H 96 H 96 H Respiratory 18 20 Rate Blood Pressure 196/92 211/98 211/98 Blood Pressure [Left] O2 Sat by Pulse 98 95 Oximetry 08/16/17 08/16/17 03:23 03:25 Temperature Pulse Rate 88 88 Respiratory 18 18 Rate Blood Pressure Blood Pressure 144/74 [Left] O2 Sat by Pulse Oximetry ED Medical Decision Making - Lab Data Result diagrams: 08/15/17 18:54 08/15/17 18:54 - Medical Decision Making The patient was seen and examined by myself. The patient is placed on a personnel monitor and continuous pulse ox. On initial evaluation, the patient was found to be in no distress. Evaluation orders are placed. IV access is established and the patient is given normal saline fluid bolus for treatment of her dehydration, and Zofran for nausea, and IV analgesic for pain. Lab results revealed elevated glucose level of 613, with normal anion gap, and normal bicarbonate, I consistent with DKA. Otherwise labs exhibited elevated RBC, hemoglobin, and elevated hematocrit, consistent with hemoconcentration and dehydration. The patient is given IV insulin for her elevated glucose level. CT scan abdomen and pelvis was obtained and was negative for bowel obstruction or other intra-abdominal emergent disease process. The patient was reevaluated and reported that their symptoms were markedly improved. The patient is stable for discharge with outpatient follow-up. The patient is given follow-up and return instructions. The patient expressed understanding and agreed with the plan. The patient is discharged in stable condition. Critical care attestation.: If time is entered above; I have spent that time in minutes in the direct care of this critically ill patient, excluding procedure time. ED Disposition Clinical Impression: Acute generalized abdominal pain, Acute hyperglycemia, Dehydration Disposition: DC-01 TO HOME OR SELFCARE Is pt being admited?: No Does the pt Need Aspirin: No Condition: Stable Instructions: Acute Abdominal Pain (ED), Diabetic Hyperglycemia (ED), Dehydration (ED) Referrals: PRIMARY CARE, [Primary Care Provider] - 3-5 Days Time of Disposition: 04:27
--- NOTE | 2017-08-16 04:41 | Cat Scan Report ---
FINAL REPORT PROCEDURE: CT ABDOMEN PELVIS WO CON TECHNIQUE: Computerized axial tomography of the abdomen and pelvis was performed without intravenous contrast. This study is performed without intravascular contrast material and its sensitivity for abdominal and pelvic pathology, including neoplasms, inflammation, abscess, free fluid, thrombosis, arterial dissection and infarction, is reduced compared with a contrast enhanced study. HISTORY: Generalized abd pain, nausea, but able to defecate COMPARISON: No prior studies are available for comparison. FINDINGS: Visualized lower thorax: No significant abnormality. Liver: Normal size and attenuation. Spleen: Normal size and attenuation. Gallbladder and biliary system: There has been a cholecystectomy. The bile ducts are normal in caliber.. Pancreas: Normal. Adrenals: Normal. Kidneys: There are no kidney stones or ureteral stones. There are intrarenal vascular calcifications. There is no hydronephrosis. GI tract: There has been bowel surgery. There is no bowel obstruction, colitis or enteritis. The appendix is normal.. Lymph nodes and mesentery: Normal. Vasculature: Normal. Bladder: Normal. Reproductive organs: There has been a hysterectomy.. Peritoneum: There is no ascites or free air, abscess or adenopathy.. Musculoskeletal structures: No significant abnormality. Other: There has been ventral hernia repair surgery.. IMPRESSION: There has been a cholecystectomy. The bile ducts are normal in caliber.. There are no kidney stones or ureteral stones. There are intrarenal vascular calcifications. There is no hydronephrosis. There has been bowel surgery. There is no bowel obstruction, colitis or enteritis. The appendix is normal.. There has been a hysterectomy.. There is no ascites or free air, abscess or adenopathy.. .
[2017-08-16 06:56] VITALS: BP 134/55
== END 2017-08-16 06:45 | disposition home or self-care (01) ==
LOC: ED 17:58
DX: R10.84 Generalized abdominal pain (principal); E86.0 Dehydration; E11.65 Type 2 diabetes mellitus with hyperglycemia; I10 Essential (primary) hypertension; F17.200 Nicotine dependence, unspecified, uncomplicated
CPT/HCPCS: 36415; 74176; 80048; 80074; 81001; 82805; 82962; 83690; 85025; 96374; 96375; 96376; 99285; J2405; J3010; J7040; J1815

== ENCOUNTER 2018-07-13 08:27 | Day surgery (SDC) | payer OTHER ==
[2018-07-13] MEDS ORDERED: ECOTRIN PO ONE (08:57)
[2018-07-13 09:31] LABS: Basophils # (Auto) 0.1 K/mm3 (0.0-0.1); Basophils % (Auto) 0.9 % (0.0-1.8); Hematocrit 36.5 % (30.3-42.9); Hemoglobin 11.5 gm/dl (10.1-14.3); Lymphocytes # (Auto) 1.3 K/mm3 (1.2-5.4); Lymphocytes % (Auto) 11.9 % (13.4-35.0); Mean Corpuscular HGB Conc 32 % (30-34); Mean Corpuscular Volume 81 fl (79-97); Monocytes # (Auto) 0.2 K/mm3 (0.0-0.8); Monocytes % (Auto) 1.6 % (0.0-7.3); Platelet Count 268 K/mm3 (140-440); Red Blood Count 4.54 M/mm3 (3.65-5.03); Red Cell Distribution Width 18.6 % (13.2-15.2)
[2018-07-13 09:43] LABS: INR 0.94 (0.87-1.13)
[2018-07-13 09:44] LABS: Partial Thromboplastin Time 24.4 Sec. (24.2-36.6)
[2018-07-13 09:46] LABS: BUN/Creatinine Ratio 14; Blood Urea Nitrogen 11 mg/dL (7-17); Calcium 8.8 mg/dL (8.4-10.2); Hemolysis Index 12
[2018-07-13] MEDS: NACL 0.9% 500 ML 500 ML IV SCH ×2 (09:46→11:30)
[2018-07-13] MEDS ORDERED: HumuLIN R SUB-Q ONE (10:21)
[2018-07-13] MEDS ORDERED: VERSED ONE (11:00)
[2018-07-13] MEDS ORDERED: CALAN ONE (11:01)
[2018-07-13] MEDS ORDERED: XYLOCAINE 2% INFILTRATI ONE (11:01)
[2018-07-13] MEDS ORDERED: HEPARIN/NS 5000 UNIT/500ML(CATH LAB) 1,000 ML IR ONE (11:01)
[2018-07-13] MEDS ORDERED: HEPARIN 10,000 UNITS/10 ML ONE (11:01)
[2018-07-13] MEDS ORDERED: NITROGLYCERIN SYRINGE 3 ML ONE (11:01)
[2018-07-13] MEDS ORDERED: APRESOLINE ONE (11:02)
[2018-07-13] MEDS: SUBLIMAZE ONE ×2 (11:29→11:35)
[2018-07-13] MEDS ORDERED: LOPRESSOR IV ONE (11:40)
--- NOTE | 2018-07-13 11:55 | Short Stay Summary ---
Short Stay Documentation Date of service: 07/13/18 - History H&P: obtained from office - Allergies and Medications Current Medications: Allergies apple Allergy (Verified 08/16/17 05:11) Itching Fish Containing Products Allergy (Verified 08/16/17 05:11) Swelling Iodinated Contrast- Oral and IV Dye [Iodinated Contrast Media - IV Dye] Allergy (Verified 08/16/17 05:11) Shortness of Breath SURGICAL TAPE Allergy (Mild, Uncoded 08/16/17 05:11) Rash CT DYE Allergy (Uncoded 02/22/17 08:56) Shortness of Breath Home Medications Medication Instructions Recorded Confirmed Last Taken Type Metformin HCl 500 mg PO TID 02/24/17 07/13/18 07/12/18 History 500mg ALBUTEROL NEB's [Proventil 0.083% 2.5 mg IH Q4HRT PRN nebu 03/12/17 07/13/18 05/13/18 Rx NEBS] Metoprolol Xl [Metoprolol 25 mg PO QDAY tablet 03/12/17 07/13/18 07/12/18 Rx SUCCINATE ER TAB] 25mg Aspirin EC [Aspirin Enteric Coated 81 mg PO DAILY 07/13/18 07/13/18 07/12/18 History TAB] 81mg Azilsartan Medoxomil [Edarbi] 40 mg PO DAILY 07/13/18 07/13/18 07/12/18 History 40mg Dulaglutide [Trulicity] 1.5 mg SQ QWEEK 07/13/18 07/13/18 07/09/18 History 1.5mg Insulin Detemir [Levemir VIAL] 20 units SQ HS 07/13/18 07/13/18 07/12/18 History 20 units Levothyroxine Sodium [Synthroid] 300 mg PO DAILY 07/13/18 07/13/18 07/12/18 History 300mg Simvastatin 40 mg PO HS 07/13/18 07/13/18 07/12/18 History 40mg hydrALAZINE [Apresoline TAB] 50 mg PO BID 07/13/18 07/13/18 07/12/18 History 50mg Active Medications Sodium Chloride (Nacl 0.9% 500 Ml) 500 mls @ 50 mls/hr IV DIRECT EMMANUEL Stop: 07/13/18 18:59 Last Admin: 07/13/18 11:30 Dose: 50 mls/hr Documented by: - Brief post op/procedure progress note Date of procedure: 07/13/18 Pre-op diagnosis: cp; abnormal stress test Post-op diagnosis: other (nonbstructive CAD) Procedure: C - see dictated cath report Anesthesia: local Estimated blood loss: none Condition: stable - Disposition Condition at discharge: Good Disposition: DC-01 TO HOME OR SELFCARE - Discharge Diagnoses (1) Nonobstructive atherosclerosis of coronary artery Status: Chronic (2) Diabetes Status: Chronic (3) Hypertension Status: Chronic (4) Hypothyroidism Status: Chronic (5) Morbid obesity with BMI of 40.0-44.9, adult Status: Chronic (6) Obstructive sleep apnea Status: Chronic (7) Tobacco use Status: Chronic Short Stay Discharge Plan Activity: advance as tolerated Diet: low fat, low cholesterol, low salt, diabetic Wound: open to air, keep clean and dry, per your surgeon's advice Additional Instructions: resume metformin on 07/15/2018 Follow up with: BRIELLE COLEMAN MD [Primary Care Provider] - 7 Days LUCAS GRAY MD [Staff Physician] - 7 Days
--- NOTE | 2018-07-13 15:13 | Cardiac Catherization Report ---
LEFT HEART CATHETERIZATION ORDERING PHYSICIAN: Dr. Momin. CLINICAL INFORMATION: This is a 52-year-old female with morbid obesity, hypertension, diabetes, cholesterol, bilateral carotid stenosis with endarterectomy with shortness of breath and chest pain with abnormal stress test, is here for left heart catheterization. Left heart catheterization performed with moderate sedation, 1 mg Versed and 100 mcg of fentanyl. Total sedation time was 50 minutes. Start 11:28 a.m., finished 11:43 a.m. Procedure was done via the right radial artery, sterile technique, local anesthesia, 6-Swazi radial sheath inserted. Left system engaged with JL3.5 catheter. Left main is large and patent, bifurcates into large LAD, is a wraparound LAD, it is patent with mild tortuosity. Diagonal 1 is a medium caliber vessel, patent. Circumflex is a large caliber vessel and AV groove is patent, and OM1 and OM2 are [id number] caliber vessels, patent. OM3 is a medium to large caliber vessel that is patent with moderate tortuosity patent. RCA engaged JR4 catheter, small to medium caliber vessel with mild luminal irregularities. PDA and PLV are small caliber vessels that are patent. LV gram done in SHERI and GARCIA view shows normal LV function, LVEDP of 20 mmHg, LV is 160 mmHg. Aortic is 155/81 mmHg. No significant gradient across the aortic valve on pullback. A 5-Swazi catheter was taken over guidewire, 6-Swazi radial sheath was discontinued. Radial band applied. No hematoma, no bleeding. SUMMARY: Left main patent, LAD patent, circumflex patent. OM3 medium caliber patent, RCA patent with mild luminal irregularities, normal LV function. Continue risk factor modification for hypertension, diabetes, cholesterol, and discussed this with the patient in detail. JOB# [id number] MARY/GARY
[2018-07-13 15:57] VITALS: BP 132/69
== END 2018-07-13 16:02 | disposition home or self-care (01) ==
LOC: CATHLABREC 08:27
PROVIDERS: ATTEND Internal Medicine
DX: I65.23 Occlusion and stenosis of bilateral carotid arteries (principal); I25.10 Atherosclerotic heart disease of native coronary artery without angina pectoris; E66.01 Morbid (severe) obesity due to excess calories; I10 Essential (primary) hypertension; E11.9 Type 2 diabetes mellitus without complications; E78.00 Pure hypercholesterolemia, unspecified; R06.02 Shortness of breath; G47.33 Obstructive sleep apnea (adult) (pediatric); E03.9 Hypothyroidism, unspecified; Z87.891 Personal history of nicotine dependence; Z90.710 Acquired absence of both cervix and uterus; Z79.899 Other long term (current) drug therapy; Z79.82 Long term (current) use of aspirin; Z79.84 Long term (current) use of oral hypoglycemic drugs; Z79.4 Long term (current) use of insulin; Z91.041 Radiographic dye allergy status; Z91.013 Allergy to seafood; Z68.42 Body mass index [BMI] 45.0-49.9, adult; Z88.8 Allergy status to other drugs, medicaments and biological substances
CPT/HCPCS: 36415; 80048; 85025; 85610; 85730; 93005; 93010; 93458; 96372; 99156; 99157; C1894; J0360; J1644; J2250; J3010; J7040; J1815; Q9967

== ENCOUNTER 2018-11-02 06:01 | Day surgery (SDC) | payer OTHER ==
[2018-11-02] MEDS ORDERED: NACL 0.9% 1000 ML 1,000 ML IV SCH (07:00)
[2018-11-02] MEDS ORDERED: INFANTS' GAS RELIEF PO ONE (08:51)
[2018-11-02] MEDS ORDERED: WATER FOR IRRIG STERILE IR ONE (08:51)
[2018-11-02] MEDS ORDERED: WATER FOR IRRIG STERILE ONE (08:52)
[2018-11-02] MEDS ORDERED: DIPRIVAN 10 MG/ML IV ONE ×3 (08:54→09:45)
--- NOTE | 2018-11-02 09:50 | Short Stay Summary ---
Short Stay Documentation - Allergies and Medications Current Medications: Allergies apple Allergy (Verified 08/16/17 05:11) Itching Fish Containing Products Allergy (Verified 08/16/17 05:11) Swelling Iodinated Contrast- Oral and IV Dye [Iodinated Contrast Media - IV Dye] Allergy (Verified 08/16/17 05:11) Shortness of Breath SURGICAL TAPE Allergy (Mild, Uncoded 08/16/17 05:11) Rash CT DYE Allergy (Uncoded 02/22/17 08:56) Shortness of Breath Home Medications Medication Instructions Recorded Confirmed Last Taken Type Metformin HCl 500 mg PO BID 02/24/17 11/02/18 11/01/18 History ALBUTEROL NEB's [Proventil 0.083% 2.5 mg IH Q4HRT PRN nebu 03/12/17 11/01/18 05/13/18 Rx NEBS] Metoprolol Xl [Metoprolol 25 mg PO QDAY tablet 03/12/17 11/02/18 11/01/18 Rx SUCCINATE ER TAB] Aspirin EC [Halfprin EC] 81 mg PO DAILY 07/13/18 11/02/18 11/01/18 History Azilsartan Medoxomil [Edarbi] 40 mg PO DAILY 07/13/18 11/02/18 11/01/18 History Dulaglutide [Trulicity] 1.5 mg SQ QWEEK 07/13/18 11/02/18 10/30/18 History Insulin Detemir [Levemir VIAL] 5 units SQ HS 07/13/18 11/02/18 11/01/18 History Levothyroxine Sodium [Synthroid] 300 mg PO DAILY 07/13/18 11/02/18 11/01/18 History Simvastatin 40 mg PO HS 07/13/18 11/02/18 11/01/18 History hydrALAZINE [Apresoline TAB] 50 mg PO BID 07/13/18 11/02/18 11/01/18 History Active Medications Sodium Chloride (Nacl 0.9% 1000 Ml) 1,000 mls @ 50 mls/hr IV DIRECT EMMANUEL Last Admin: 11/02/18 08:24 Dose: 50 mls/hr Documented by: - Brief post op/procedure progress note Date of procedure: 11/02/18 Pre-op diagnosis: 1. Abdominal pain 2. History of colon polyps Post-op diagnosis: same (EGD: 1. GERD2. Gastritis 3. Doudenitis 4. Duodenal lesion Colonoscopy" 1. Rectal polyps 2. Hemorrhoids 3. Diverticulosis 4. Poor prep) Procedure: 1. EGD with biopsy 2. Colonoscopy with cold biopsy polypectomy Anesthesia: MAC Findings: as above Surgeon: KULWINDER NICOLE Estimated blood loss: none Pathology: list (1. Antrum 2, Rectal polyps) Specimen disposition: to lab Condition: stable - Disposition Condition at discharge: Stable Disposition: - TO HOME OR SELFCARE Short Stay Discharge Plan Activity: no restrictions Weight Bearing Status: Full Weight Bearing Diet: regular, low salt Additional Instructions: Post Sedation D/C Instructions When you return home you may resume your regular diet unless otherwise directed. -Go directly home from the hospital and rest quietly. You may resume normal activities tomorrow. -Do NOT drive, return to work, operate any machinery or make any important personal or business decisions today. -Do NOT drink any alcohol or take nerve or sleeping drugs. They add to the effects of the medicine still present in your body. -NO ASPIRIN OR NSAIDS FOR THE NEXT 4 DAYS Follow up with: BRIELLE COLEMAN MD [Primary Care Provider] - 7 Days
[2018-11-02 10:09] VITALS: BP 115/62
[2018-11-02] MEDS ORDERED: INFANTS' GAS RELIEF PO PRN (10:54)
--- NOTE | 2018-11-02 13:37 | Anesthesia Consultation ---
Anesthesia Consult and Med Hx Date of service: 11/02/18 - Airway Anesthetic Teeth Evaluation: Good ROM Head & Neck: Adequate Mental/Hyoid Distance: Inadequate Mallampati Class: Class III Intubation Access Assessment: Possibly Difficult - Pre-Operative Health Status ASA Pre-Surgery Classification: ASA3 Proposed Anesthetic Plan: MAC - Pulmonary Hx Smoking: Yes (current smoker) Hx Asthma: Yes Hx Pneumonia: No Hx Sleep Apnea: Yes (Does not wear CPAP at home) - Cardiovascular System Hx Hypertension: Yes Hx Coronary Artery Disease: Yes (s/p cardia cath 06/2018) Hx Peripheral Vascular Disease: Yes (s/p bilateral carotid endarterectomy ) - Endocrine Hx End Stage Renal Disease: No Hx Liver Disease: Yes (Hyperlipidemia) Hx Insulin Dependent Diabetes: Yes Hx Hypothyroidism: Yes - Other Systems Hx Obesity: Yes
--- NOTE | 2018-11-02 13:41 | Anesthesia Day of Surgery ---
Anesthesia Day of Surgery - Day of Surgery Patient Examined: Yes Patient H&P Reviewed: Yes Patient is NPO: Yes Beta Blockers: Yes Cardiac Clearance: Yes
== END 2018-11-02 06:02 | disposition home or self-care (01) ==
LOC: GIO 06:01
PROVIDERS: ATTEND Internal Medicine Gastroenterology
DX: K29.50 Unspecified chronic gastritis without bleeding (principal); K62.1 Rectal polyp; K57.30 Diverticulosis of large intestine without perforation or abscess without bleeding; K64.8 Other hemorrhoids; E11.51 Type 2 diabetes mellitus with diabetic peripheral angiopathy without gangrene; I10 Essential (primary) hypertension; G47.30 Sleep apnea, unspecified; I25.10 Atherosclerotic heart disease of native coronary artery without angina pectoris; E66.01 Morbid (severe) obesity due to excess calories; G47.33 Obstructive sleep apnea (adult) (pediatric); E03.9 Hypothyroidism, unspecified; F17.210 Nicotine dependence, cigarettes, uncomplicated; J45.909 Unspecified asthma, uncomplicated; Z86.010 Personal history of colon polyps; Z87.19 Personal history of other diseases of the digestive system; Z79.899 Other long term (current) drug therapy; Z91.013 Allergy to seafood; Z79.82 Long term (current) use of aspirin; Z79.4 Long term (current) use of insulin; Z79.84 Long term (current) use of oral hypoglycemic drugs; Z68.41 Body mass index [BMI] 40.0-44.9, adult; Z90.710 Acquired absence of both cervix and uterus; Z98.890 Other specified postprocedural states
CPT/HCPCS: 43239; 45380; 82962; 88305; 88342; J2704; J7030